=== PATIENT | female | born 1955 | race Caucasian/White ===

== ENCOUNTER 2017-10-26 06:19 | Inpatient (IN) | payer BC ==
[2017-10-05 15:22] VITALS: Ht 157.5 cm; Wt 78.6 kg
[2017-10-05 15:31] LABS: BASO % 0.3 %; BASO ABS # 0.02 K/uL (0-0.2); EOS ABS # 0.25 K/uL (0-0.5); HEMATOCRIT 38.7 % (37-47); HEMOGLOBIN 13.2 g/dL (12.0-16.0); IG# 0.01 K/uL (0.00-0.02); LYMPH % 25.2 %; LYMPH ABS # 1.56 K/uL (1.2-3.4); MEAN CELL VOLUME 86.2 fL (80-100); MEAN CORPUSCULAR HEMOGLOBIN 29.4 pg (25-34); MEAN CORPUSCULAR HGB CONC 34.1 g/dl (32-36); MEAN PLATELET VOLUME 9.3 fL (7.4-10.4); MONO % 7.8 %; MONO ABS # 0.48 K/uL (0.11-0.59); NEUT % 62.5 %; NEUT ABS # 3.87 K/uL (1.4-6.5); PLATELET COUNT 227 K/uL (130-400); RED CELL DISTRIBUTION WIDTH CV 12.4 % (11.5-14.5); RED CELL DISTRIBUTION WIDTH SD 39.5 fL (36.4-46.3); WHITE BLOOD COUNT 6.19 K/uL (4.8-10.8)
[2017-10-05 15:40] LABS: INR 0.9 (0.9-1.1); PTT PATIENT 24.8 SECONDS (21.0-31.0)
--- NOTE | 2017-10-05 16:12 | PAT Medication Instructions ---
Service Date Oct 05, 2017. Current Home Medication List Esomeprazole Magnesium (Nexium), 40 MG PO QAM Levothyroxine Sodium (Levothyroxine Sodium), 1 TAB PO 4XWEEK Levothyroxine Sodium (Levothyroxine Sodium), 1 TAB PO 3XWEEK Metformin Hcl (Glucophage), 500 MG PO BID Olmesartan Medoxomil (Benicar), 40 MG PO HS Medication Instructions For Your Scheduled Surgery - Hold the following medications the night before surgery: Olmesartan Medoxomil (Benicar), 40 MG PO HS - Hold the following medications the morning of surgery: Metformin Hcl (Glucophage), 500 MG PO BID - Take the following medications the morning of surgery with a sip of water: Esomeprazole Magnesium (Nexium), 40 MG PO QAM Levothyroxine Sodium (Levothyroxine Sodium), 1 TAB PO 4XWEEK Levothyroxine Sodium (Levothyroxine Sodium), 1 TAB PO 3XWEEK If you have any questions please call us at [phone] or [phone] or [phone]
[2017-10-05 16:41] LABS: CALCIUM 9.2 mg/dl (8.5-10.1); CREATININE 0.82 mg/dl (0.60-1.20); POTASSIUM 4.6 mmol/L (3.5-5.1)
--- NOTE | 2017-10-05 16:48 | DIAGNOSTIC IMAGING REPORT ---
CHEST 2 VIEWS ROUTINE CLINICAL HISTORY: Preoperative chest COMPARISON STUDY: No previous studies for comparison. FINDINGS: The cardiac and mediastinal contours are normal. There is no evidence of focal pulmonary consolidation. There is no evidence of failure. No pleural effusions are visualized.[ IMPRESSION: No active disease in the chest. Electronically signed by: Placido Farah M.D. 10/05/2017 4:47 PM Dictated Date/Time: 10/05/2017 4:46 PM
[2017-10-06 06:21] LABS: HEMOGLOBIN A1C 6.1 % (4.5-5.6)
--- NOTE | 2017-10-20 13:57 | HISTORY & PHYSICAL EXAMINATION ---
DATE OF ADMISSION: 10/26/2017 CHIEF COMPLAINT: Bilateral knee pain and discomfort, right side greater than left. HISTORY OF PRESENT ILLNESS: A 62-year-old white female referred by my partner Dr. Reynoso for surgical treatment of her right knee. She has got a very long history of bilateral knee pain and discomfort. 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 She has been through extensive conservative treatment. She had multiple injections in the knee which become less successful over time. They helped for a limited amount of time. She has been on different anti-inflammatories which do not help. Right knee has been worse than the left currently. Pain is mostly medial. She has taken anti-inflammatories in the past but they irritate her stomach and she has had to go to taking omeprazole as a result. She would like to have her right knee fixed first. PAST MEDICAL HISTORY: 1. Diabetes x3-4 years. 2. Hypertension. 3. Sleep apnea. 4. Hiatal hernia. 5. Gastroesophageal reflux disease. 6. Back pain/sciatica. PREVIOUS SURGICAL HISTORY: 1. Hysterectomy. 2. Tailbone surgery. 3. Foot surgery. 4. Eye surgery. 5. Cholecystectomy. ALLERGIES: None. CURRENT MEDICINES: 1. Benicar 40 mg daily. 2. Omeprazole 40 mg daily. 3. Levothyroxine 25 mcg on Wednesday, , Wednesday and Wednesday and 50 mcg on Wednesday, Wednesday and Wednesday. 4. Metformin 500 mg twice a day. 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 She is . Rare alcohol intake. Does not smoke. FAMILY HISTORY: Significant for heart disease, diabetes, colon cancer, breast cancer. REVIEW OF SYSTEMS: Sitting for diabetes. Denies any chest pain or shortness of breath. No history of DVT or PE. PHYSICAL EXAMINATION: GENERAL: Reveals a healthy pleasant, middle-aged female. Looks to be in pretty good health. HEENT: Benign. NECK: Supple. No lymphadenopathy. LUNGS: Clear to auscultation. HEART: Has a regular rate and rhythm. ABDOMEN: Soft, nontender, nondistended. EXTREMITIES: Grossly neurovascularly intact except as follows: The patient's both knees reveal patient walks independently. Fairly minimal limp. Examination of right knee reveals varus alignment to her knee. She is tender over the medial joint line. A small knee effusion. Range of motion is 0-125. No instability. IMAGING DATA: X-rays reveal advanced bilateral knee DJD. Disease primarily involves the medial compartment with some patellofemoral disease. The right side is a bit worse than the left. ASSESSMENT: A 62-year-old female with bilateral knee degenerative joint disease, right side more symptomatic than the left. She has failed conservative treatment and would like to have her right knee replaced. PLAN: We are going to take her to the operating room and do right total knee replacement. The risks and benefits of this procedure were explained to the patient including but not limited to DVT, PE, , infection, neurological injury, vascular injury, bleeding problem, pain, limited range of motion, stiffness, failure to relieve symptoms, incomplete relief of symptoms, need for further surgery in future, fracture, leg length inequality, nerve palsy, etc. The patient understands and desires to proceed. Informed consent was obtained. She does know to hold metformin 2 days preop. She will continue on her omeprazole. Probably seeing her back 2 weeks postop. She should be able to be discharged home, either do outpatient therapy or home health. YOLANDA
[~2017-10-26] VITALS: Ht 157.5 cm; Wt 78.6 kg
[2017-10-26] VITALS (9 sets, daily range): BP systolic 95–157; BP diastolic 59–77; PULSE 56–86; TEMP 36.4–36.7; O2SAT 94–100
[~2017-10-26 06:19] MED LIST: ACETAMINOPHEN 500 MG TAB PO SCH; BNC/40 PO; BUPIVACAINE LIPOSOME 266 MG, BUPIVACAINE/EPINEPHRINE INJ 50 ML, SODIUM CHLORIDE 0.9% PF... INFIL SCH; CEFAZOLIN 2000MG IV PUSH 15 ML IV SCH; FAMOTIDINE 20 MG TAB PO SCH; GABAPENTIN 600 MG PO SCH; GLC/500 PO; LACTATED RINGER'S 1000ML 1,000 ML IV SCH; LACTATED RINGER'S 1000ML 500 ML IV SCH; LACTATED RINGER'S 1000ML IV SCH; LEVO25TA5 PO; LEVO50TA6 PO; METOCLOPRAMIDE HCL 10 MG TAB PO SCH; NXM/40 PO; SCOPOLAMINE 1.5 MG TDSY TD SCH; TRANEXAMIC ACID INJ 1,000 MG x 1 Bag Intra-Op IV SCH
--- NOTE | 2017-10-26 06:49 | History & Physical Bridge Note ---
H&P Re-Evaluation Bridge Note: I have examined the patient, reviewed the History & Physical and in the interval since the performance of the History & Physical I have noted the following changes of clinical significance: No changes noted
[2017-10-26] MEDS ORDERED: BUPIVACAINE 0.5 % 5 MG/1 ML PF 10ML VIAL ONE (07:35)
[2017-10-26] MEDS ORDERED: ROPIVACAINE 0.5% 5 MG/ML 30 ML VIAL ONE (07:35)
[2017-10-26] MEDS ORDERED: MIDAZOLAM HCL 1 MG/ML 2ML VIAL ONE (07:47)
[2017-10-26] MEDS ORDERED: FENTANYL CITRATE INJ 50 MCG/1 ML 2 ML VIAL ONE (07:47)
[2017-10-26] MEDS ORDERED: BUPIVACAINE LIPOSOME 1/3% 266 MG/20 ML VIAL INFIL ONE (08:54)
[2017-10-26] MEDS ORDERED: BUPIVACAINE 0.25% 30 ML VIAL ONE (08:54)
[2017-10-26] MEDS ORDERED: BACITRACIN 50000 UNIT VIAL ONE (08:54)
[2017-10-26] MEDS ORDERED: SODIUM CHLORIDE 0.9% PF 50 ML VIAL ONE (08:54)
[2017-10-26] MEDS ORDERED: EpINEphrine INJ 1MG/ML AMP 1 MG/ML AMP ONE (08:54)
[2017-10-26] MEDS ORDERED: ONDANSETRON INJ 2 MG/ML 2 ML VIAL ONE ×2 (09:35→10:59)
[2017-10-26] MEDS ORDERED: PROPOFOL IV EMULSION 10 MG/ML 20 ML VIAL IV ONE (09:35)
[2017-10-26] MEDS ORDERED: LIDOCAINE HCL 2% 2 ML VIAL (20MG/ML) ONE (09:35)
[2017-10-26] MEDS ORDERED: HYDROmorphone INJ 2 MG/ML SYR/VIAL IV PRN (09:45)
[2017-10-26] MEDS ORDERED: ATROPINE SULFATE 0.1 MG/ML 5ML SYR IV PRN (09:45)
[2017-10-26] MEDS ORDERED: PHENYLEPHRINE 100MCG/ML 5ML SYR IV PRN (09:45)
[2017-10-26] MEDS ORDERED: EpHEDrine SULFATE INJ 50 MG/ML AMP IV PRN (09:45)
[2017-10-26] MEDS ORDERED: ONDANSETRON INJ 2 MG/ML 2 ML VIAL IV PRN ×2 (09:45→10:45)
[2017-10-26] MEDS ORDERED: EpHEDrine SULFATE 50MG/5ML SYR ONE (10:28)
[2017-10-26] MEDS ORDERED: BISACODYL 10 MG SUPP PR PRN (10:45)
[2017-10-26] MEDS ORDERED: METOCLOPRAMIDE HCL INJ 5 MG/ML 2 ML VIAL IV PRN (10:45)
[2017-10-26] MEDS ORDERED: GLUCAGON FOR INJ 1 MG VIAL SQ PRN (10:45)
[2017-10-26] MEDS ORDERED: MAGNESIUM HYDROXIDE SUSP 30 ML UDC PO PRN (10:45)
[2017-10-26] MEDS ORDERED: DiphenhydrAMINE HCL 50 MG/ML VIAL IV PRN (10:45)
[2017-10-26] MEDS ORDERED: GLUCOSE 10 TABS/TUBE PO PRN (10:45)
[2017-10-26] MEDS ORDERED: MoRPHine SULFATE 2 MG/ML CARP IV PRN (10:45)
[2017-10-26] MEDS ORDERED: DEXTROSE 50% 50 ML SYR IV PRN (10:45)
[2017-10-26] MEDS ORDERED: SILVER SULFADIAZINE 1% CR 50 GM JAR EXT PRN (10:45)
[2017-10-26] MEDS ORDERED: ZOLPIDEM TARTRATE 5 MG TAB PO PRN (10:45)
[2017-10-26] MEDS ORDERED: GLUCOSE 40% GEL 15 GM TUBE PO PRN (10:45)
[2017-10-26] MEDS ORDERED: ALUMINUM/MAGNESIUM/SIMETH (MAALOX MAX) 30 ML UDC PO PRN (10:45)
--- NOTE | 2017-10-26 10:45 | [facility] Post Operative Brief Note ---
Immediate Operative Summary Operative Date Oct 26, 2017. Pre-Operative Diagnosis Right Knee Advanced Degenerative Joint Disease Post-Operative Diagnosis Right Knee Advanced Degenerative Joint Disease Procedure(s) Performed Right Total Knee Arthroplasty Surgeon Dr. Painting Stone Decorator Surgeon(s) ROSALIE Ruby Estimated Blood Loss 50 ml Findings Consistent with Post-Op Diagnosis Fluids (cc crystalloids) 1100 cc Specimens A. Right Knee Bone and Tissue Drains None Anesthesia Type MAC Spinal Regional Complication(s) none Disposition Accompanied Pt To Recover: no Disposition: Recovery Room / PACU
--- NOTE | 2017-10-26 11:42 | DIAGNOSTIC IMAGING REPORT ---
RIGHT KNEE 2 VIEWS History: Right total knee arthroplasty. Degenerative arthritis. Postop. FINDINGS: The patient is status post a right total knee arthroplasty. The hardware is intact. No fracture or dislocation. Skin jesús are in place. IMPRESSION: Right total knee arthroplasty. No evidence for hardware complication. Electronically signed by: Michel Castillo M.D. 10/26/2017 11:41 AM Dictated Date/Time: 10/26/2017 11:39 AM
--- NOTE | 2017-10-26 11:44 | OPERATIVE REPORT ---
DATE OF OPERATION: 10/26/2017 SURGEON: Floyd Painting MD COPY OPERATOR: ROSALIE Ruby PREOPERATIVE DIAGNOSIS: Right knee degenerative joint disease. POSTOPERATIVE DIAGNOSIS: Same. PROCEDURE PERFORMED: Right cemented posterior stabilized total knee arthroplasty. COMPLICATIONS: None. ESTIMATED BLOOD LOSS: 50 mL. FLUID REPLACEMENT: 1100 mL crystalloid fluid replacement. ANESTHESIA: Spinal with adductor canal block. DRAINS: None. SPECIMENS: Right knee sent for pathology. OPERATIVE INDICATIONS: The patient is a 62-year-old female who has had a fairly long history of bilateral knee pain and discomfort followed and managed by my partner Dr. Reynoso. She became less responsive to conservative care. X-rays showed moderate to advanced medial compartment DJD. She elected to do a total knee arthroplasty. OPERATIVE FINDINGS: Operative findings were advanced right knee DJD. She had a pretty extensive grade 4 changes of the medial femoral condyle, was in eburnation. She had grade 4 changes of the anterior medial tibial plateau. She also had some focal grade 4 changes of patellofemoral joint. The lateral compartment was pretty well preserved. Moderate size joint effusion. OPERATIVE IMPLANTS: Operative implants consisted of: 1. A Biomet Vanguard size 57.5 right posterior stabilized femoral component. 2. A Biomet size 63 tibial tray. 3. A 10 mm posterior stabilized polyethylene insert. 4. A 31 x 8 all poly patella. OPERATIVE PROCEDURE: The patient taken to the operating room, identified and placed on the operating table in supine position. All contact areas were appropriately padded. IV antibiotics were provided by anesthesia team. A spinal anesthetic and adductor canal block had been provided in the holding area. Watson catheter was placed in sterile fashion. Right thigh tourniquet was then placed and the right lower extremity was then prepped and draped in usual sterile fashion. The right leg was elevated, exsanguinated with Esmarch, tourniquet was placed at 300 mmHg. An anterior approach of the right knee was then performed through a longitudinal incision centered over the patella. Sharp dissection was carried through the subcutaneous tissue down below the extensor mechanism. A medial parapatellar arthrotomy incision was made. Some subperiosteal dissection was carried out medially. The fat pad resected from beneath the patellar tendon. The lateral patellofemoral ligament was released. Patella was everted and the knee was flexed. The osteophytes were taken off the distal femur. The ACL and PCL were then released from the distal femur and the tibia subluxated anteriorly. The external tibial alignment jig was then placed in the anterior face of the tibia and adjusted 14 mm medially. Proximal tibial cut was made to remove about 3-4 mm of bone from the medial side as she did not have a lot of bone wear. The tibia was then sized to a size 63. Attention was then drawn to the femur. The distal femur was entered with a sharp drill bit. Intramedullary canal was suctioned. A 5 degree valgus cutting guide was placed. A distal femoral cut was made to take an additional 3 mm of bone off the distal femur. Femur was then sized to a 57.5. The AP cutting block was pinned parallel to the epicondylar axis, which was 3 degrees of external rotation. The anterior cut, anterior chamfer cut, posterior cut, posterior chamfer cuts were made. Box cutting guide was placed and adjusted slightly lateral and box cut was made. The knee was flexed. The remnants of the medial and lateral menisci were excised. The osteophytes were taken off the posterior aspect of the femur. Trial femoral component was placed. Tibial tray was pinned in maximum external rotation and the drill and stem punch were used to create defect in proximal tibia for the tibial tray. The knee was then trialed and a 10 mm insert fit most appropriately. Attention was then drawn to the patella. The patella was cleaned of all soft tissues. Patella thickness measured 18 mm and was cut down to 13. It was sized to a size 31 patella. Lug holes were drilled for 31 patella. Lateral osteophyte was removed. Patella button was placed. Knee was taken through range of motion and the patella tracked nicely with no thumbs test. Attention was then drawn toward placement of permanent components. All trial components removed. A bone plug was placed in the distal femur to limit blood loss. A single batch of Palacos G cement was mixed. A right size 57.5 right posterior stabilized femoral component, size 63 tibial tray, 10 mm posterior stabilized polyethylene insert, and a 31 x 8 all poly patella then cemented in place. Knee was brought out into full extension until cement hardened. A final cement check was then performed. Pericapsular tissues were then injected with a total of 100 mL of a combination of 20 mL of Exparel, 30 mL of normal saline, 50 mL of 0.25% Marcaine with epinephrine. The patient did receive 1 gram of tranexamic acid. The tourniquet was then let down for final tourniquet time of 49 minutes. Hemostasis was assured using electrocautery. The extensor mechanism was then closed with a combination of #1 PDS suture and #1 Vicryl suture in [id number] fashion. Extensor mechanism was checked and found to be intact. Subcutaneous tissue was then closed with #2 Dexon suture in a buried interrupted fashion. Skin was closed skin jesús. Leg was then cleaned and dried and a sterile dressing of Xeroform, 4 x 4's, sterile cast padding and Keith bandage were applied. The patient then transferred to the recovery room in stable condition. The patient tolerated the procedure well with no complication. All needle and sponge counts were correct at the end of the operation. I attest to the content of the Intraoperative Record and any orders documented therein. Any exception s are noted below.
[2017-10-26] MEDS: KETOROLAC TROMETHAMINE 30 MG/ML VIAL IV. SCH ×2 (13:53→21:28)
[2017-10-26] MEDS: FERROUS GLUCONATE 324 MG TAB PO SCH ×2 (13:55→18:10)
--- NOTE | 2017-10-26 14:23 | Anesthesiology Progress Note ---
Anesthesia Post Op Note Date & Time Oct 26, 2017 at 14:23 Vital Signs Pain Intensity: 0.0 Vital Signs Past 12 Hours Date Time Temp Pulse Resp B/P (MAP) Pulse Ox O2 Delivery O2 Flow Rate FiO2 10/26/17 14:00 36.5 69 16 122/73 (89) 100 Nasal Cannula 2.0 10/26/17 13:05 36.4 70 16 110/65 (80) 99 Nasal Cannula 2.0 10/26/17 12:34 36.4 64 18 108/67 (81) 98 Nasal Cannula 2.0 10/26/17 12:10 Nasal Cannula 10/26/17 12:10 100 Nasal Cannula 2.0 10/26/17 12:05 36.4 74 16 108/67 (81) 100 Nasal Cannula 2.0 10/26/17 11:45 36.4 63 16 113/56 97 Nasal Cannula 2 10/26/17 11:35 36.4 66 16 124/60 99 Nasal Cannula 2 10/26/17 11:25 65 16 120/58 100 Nasal Cannula 2 10/26/17 11:15 65 18 122/59 100 Nasal Cannula 2 10/26/17 11:05 60 16 131/54 100 Oxymask 10 10/26/17 10:55 61 16 131/54 100 Oxymask 10 10/26/17 10:49 36.7 85 16 122/65 96 Oxymask 10 10/26/17 07:04 36.7 86 18 157/77 94 Room Air Notes Mental Status: alert / awake / arousable, participated in evaluation Pt Amnestic to Procedure: Yes Nausea / Vomiting: adequately controlled Pain: adequately controlled Airway Patency, RR, SpO2: stable & adequate BP & HR: stable & adequate Hydration State: stable & adequate Anesthetic Complications: no major complications apparent
[2017-10-26] MEDS: ACETAMINOPHEN 500 MG TAB PO SCH ×2 (14:49→21:27)
--- NOTE | 2017-10-26 15:42 | PROGRESS NOTE ---
DATE: 10/26/2017 SUBJECTIVE: A 62-year-old white female postop from a right knee replacement. She is doing pretty well. Not having any pain. Cannot feel her legs yet. The spinal still in effect. No chest pain or shortness of breath. Not feeling dizzy or lightheaded. OBJECTIVE: VITAL SIGNS: Temperature 36.5. Vital signs stable. PHYSICAL EXAMINATION: GENERAL: Reveals a healthy pleasant, middle-aged female. Lying in bed, looks pretty comfortable. She is talking to her family. LUNGS: Clear to auscultation. HEART: Regular rate and rhythm. ABDOMEN: Soft, nontender, nondistended. EXTREMITIES: Grossly neurovascularly intact except as follows: Examination of the right leg reveals the leg to be well aligned. Dressing is clean, dry and intact. She got no significant sensory or motor function yet. ASSESSMENT: A 62-year-old female postop from a right knee replacement, doing well. Pain is controlled. Spinal still in effect. PLAN: 1. DVT prophylaxis including thigh-high TEDs, SCDs, and aspirin twice a day. 2. PT/OT. Weight bear as tolerated. Right total knee protocol. 3. Pain control. Doing well with current pain regimen. We will have to adjust medicines as her spinal wears off. 4. IV antibiotics x24 hours. 5. Disposition: Plan to discharge to home likely with some home health once adequately recovered.
[2017-10-26] MEDS: CHECK SCOPOLAMINE PATCH PLACEMENT SCH ×2 (16:00→23:57)
[2017-10-26] MEDS: OXYCODONE HCL IR 5 MG TAB (IMMEDIATE RELEASE) PO PRN ×2 (16:45→22:32)
[2017-10-26] MEDS ORDERED: TRANEXAMIC ACID INJ 1,000 MG in SODIUM CHLORIDE 0.9% 100ML 100 ML IV SCH (17:00)
[2017-10-26] MEDS: CEFAZOLIN IV 1,000 MG in SYRINGE 0 ML IV SCH (18:07)
[2017-10-26] MEDS: SODIUM CHLORIDE 0.9% 1000ML 1,000 ML IV SCH (18:08)
[2017-10-26] MEDS: INSULIN HUMAN REGULAR SC SCH ×2 (18:08→21:00)
[2017-10-26] MEDS: SENNA 8.6 MG TAB PO SCH (21:26)
[2017-10-26] MEDS: OLMESARTAN MEDOXOMIL 40 MG TAB PO SCH (21:26)
[2017-10-26] MEDS: ASPIRIN 81 MG ECTAB PO SCH (21:27)
[2017-10-26] MEDS: TAPENTADOL ER 50 MG TABCR PO SCH (21:30)
[2017-10-26] MEDS: DOCUSATE SODIUM 100 MG CAP PO SCH (21:31)
[2017-10-26] MEDS ORDERED: NURSING VERBAL MED ORDER ONE (22:45)
[2017-10-27] MEDS: KETOROLAC TROMETHAMINE 30 MG/ML VIAL IV. SCH ×4 (02:19→20:30)
[2017-10-27] MEDS: CEFAZOLIN IV 1,000 MG in SYRINGE 0 ML IV SCH (02:19)
[2017-10-27 03:43] VITALS: BP 105/63; PULSE 54; TEMP 36.6; O2SAT 95
[2017-10-27] MEDS: SODIUM CHLORIDE 0.9% 1000ML 1,000 ML IV SCH (04:44)
[2017-10-27] MEDS: LEVOTHYROXINE 25 MCG TAB PO SCH (05:56)
[2017-10-27] MEDS: ACETAMINOPHEN 500 MG TAB PO SCH ×3 (05:56→21:02)
[2017-10-27 07:08] LABS: HEMATOCRIT 31.9 % (37-47); HEMOGLOBIN 10.6 g/dL (12.0-16.0); MEAN CELL VOLUME 88.4 fL (80-100); MEAN CORPUSCULAR HEMOGLOBIN 29.4 pg (25-34); MEAN CORPUSCULAR HGB CONC 33.2 g/dl (32-36); MEAN PLATELET VOLUME 9.2 fL (7.4-10.4); PLATELET COUNT 170 K/uL (130-400); RED CELL DISTRIBUTION WIDTH CV 12.7 % (11.5-14.5); RED CELL DISTRIBUTION WIDTH SD 41.2 fL (36.4-46.3); WHITE BLOOD COUNT 4.47 K/uL (4.8-10.8)
[2017-10-27] MEDS: OXYCODONE HCL IR 5 MG TAB (IMMEDIATE RELEASE) PO PRN ×3 (07:15→23:27)
[2017-10-27 07:36] LABS: CALCIUM 8.4 mg/dl (8.5-10.1); CREATININE 0.95 mg/dl (0.60-1.20); POTASSIUM 3.9 mmol/L (3.5-5.1)
[2017-10-27] MEDS: CHECK SCOPOLAMINE PATCH PLACEMENT SCH ×3 (08:00→23:27)
[2017-10-27 08:08] VITALS: BP 97/63; PULSE 67; TEMP 36.4; O2SAT 92
[2017-10-27] MEDS ORDERED: PANTOprazole SOD 40 MG TAB PO SCH (09:00)
[2017-10-27] MEDS: INSULIN HUMAN REGULAR SC SCH ×4 (09:11→20:48)
[2017-10-27] MEDS: ASPIRIN 81 MG ECTAB PO SCH ×2 (09:15→20:30)
[2017-10-27] MEDS: DOCUSATE SODIUM 100 MG CAP PO SCH ×2 (09:15→20:30)
[2017-10-27] MEDS: FERROUS GLUCONATE 324 MG TAB PO SCH ×3 (09:15→17:50)
[2017-10-27] MEDS: PANTOprazole SOD 40 MG TAB PO SCH (09:15)
[2017-10-27] MEDS: MULTIVITAMIN TAB PO SCH (09:15)
[2017-10-27 09:20] VITALS: BP 131/71; PULSE 71
[2017-10-27] MEDS: TAPENTADOL ER 50 MG TABCR PO SCH ×2 (09:24→20:32)
--- NOTE | 2017-10-27 10:57 | Anesthesiology Progress Note ---
Anesthesia Post Op Note Date & Time Oct 27, 2017 at 10:56 Vital Signs Vital Signs Past 12 Hours Date Time Temp Pulse Resp B/P (MAP) Pulse Ox O2 Delivery O2 Flow Rate FiO2 10/27/17 09:20 71 131/71 (91) 10/27/17 08:08 36.4 67 20 97/63 (74) 92 Room Air 10/27/17 07:40 Room Air 10/27/17 03:43 36.6 54 15 105/63 (77) 95 Room Air 10/26/17 23:40 60 113/68 (83) 10/26/17 23:40 98 Room Air 2.0 10/26/17 22:58 36.5 57 15 95/59 (71) 98 Room Air Notes Mental Status: alert / awake / arousable, participated in evaluation Pt Amnestic to Procedure: Yes Nausea / Vomiting: adequately controlled Pain: adequately controlled Airway Patency, RR, SpO2: stable & adequate BP & HR: stable & adequate Hydration State: stable & adequate Neuraxial Anesthesia: sensory block resolved Anesthetic Complications: no major complications apparent
[2017-10-27 11:15] VITALS: BP_SYST 119; BP_SYST 99; BP_DIAS 63; BP_DIAS 73; PULSE 56; TEMP 36.6; O2SAT 94
[2017-10-27] MEDS ORDERED: FRRG PO (11:26)
[2017-10-27] MEDS ORDERED: ACET-24 PO (11:26)
[2017-10-27] MEDS ORDERED: ASPI-320 PO (11:26)
[2017-10-27] MEDS ORDERED: RXC5 PO (11:26)
[2017-10-27 15:02] VITALS: BP 120/69; PULSE 72; TEMP 36.9; O2SAT 96
--- NOTE | 2017-10-27 19:48 | PROGRESS NOTE ---
DATE: 10/27/2017 SUBJECTIVE: A 62-year-old white female postop day 1 from a right knee replacement. She is doing pretty well. Pretty significant pain but managed with medicines. She is really concerned about going home. She does not have much help at home as her works quite a bit. No chest pain or shortness of breath. She has gotten a little bit dizzy with her pain medicine. OBJECTIVE: VITAL SIGNS: Temperature 36.6. Vital signs stable. GENERAL: Physical examination reveals a pleasant, middle-aged female. She is sitting up in bed and eating dinner. She looks comfortable. EXTREMITIES: Examination of the right leg reveals the dressing to be clean, dry and intact. She can dorsiflex and plantarflex her foot appropriately. NEUROLOGIC: She is neurologically intact. LABORATORY DATA: Hemoglobin 10.6, hematocrit 31.9. Electrolytes are stable. ASSESSMENT: Ppeyl-dlv-[id number]-old female postop day 1 from right knee replacement, doing pretty well. Significant pain but not unexpected. PLAN: 1. DVT prophylaxis including thigh-high TEDs, SCDs, and aspirin twice a day. 2. PT, OT. Weight bear as tolerated. Right total knee protocol. 3. Pain control. Doing reasonably well with current pain regimen. 4. Disposition: She is hoping to be discharged to a [facility] facility if insurance will cover it. If not, she will likely have to go home with some home health. YOLANDA
--- NOTE | 2017-10-27 19:56 | Discharge Instructions ---
Discharge Instructions Date of Service Oct 27, 2017. Admission Reason for Admission: Right Knee Degenerative Joint Disease Discharge Discharge Diagnosis / Problem: Right Knee Replacement Discharge Goals Goal(s): Decrease discomfort, Improve function, Increase independence, Improve disease control, Therapeutic intervention Activity Recommendations Activity Limitations: per Instructions/Follow-up section Weightbearing Status: Right weightbearing . Instructions / Follow-Up Instructions / Follow-Up ACTIVITY RECOMMENDATIONS: Physical Therapy: * You will go to physical therapy three times each week for four to six weeks after your surgery in order to regain your knee range of motion and to retrain your knee to work properly. * It is just as important to make sure you are getting your knee perfectly straight as it is to regain your knee bend. * Taking a pain pill an hour before therapy can help you have a more productive and comfortable therapy session. Home Exercise: * You were shown a series of exercises (heel props, heel slides, etc.) in the hospital. Do these exercises three to four times each day including the exercises you were shown in physical therapy. Walking: * Get up and walk several times each day. For the first four weeks, try not to stand or walk for more than one hour at a time. If you do stand or walk for more than one hour, you will not hurt anything, but your knee and leg will likely swell. * As you feel comfortable, you may change from the walker or crutches to a cane and then to independent walking. MEDICATIONS: New Medicine: * You will likely be taking one or more of these medications: 1. Oxycodone - A quick and shorter-acting pain medication. Take one to two tablets every four to six hours to lessen your pain. 2. Iron Sulfate - Take two times each day for the month after surgery to help you replace the blood lost during surgery. 3. Aspirin - Thins your blood to lessen the chance of forming a blood clot. * The most common side effects of pain medicine and iron are nausea and constipation. If nausea or constipation is too much of a problem or if you have any questions about your new medicines or doses, call [facility] at [phone]. We will try to help you manage these issues. VERY IMPORTANT TO READ AND REVIEW" Pain: * The immediate post-operative period after knee replacement surgery is often quite painful. * You are given a prescription for pain medicine. You should take it, as directed, when you need it, especially before physical therapy and before going to bed. Pain that interferes with sleep is very common and can last several months. * You will likely need pain medicine for the first four to six weeks. It will not stop all of the pain. The pain will lessen and as you feel better, you may change to milder pain medicine such as Tylenol. * The most common side effects of pain medicine are nausea and constipation, so don't take more than you need. SPECIAL CARE INSTRUCTIONS: TEDs/Elastic Stockings: * The white elastic stockings help limit swelling and prevent blood clots from forming in your legs. The more you wear them, the more they work. * Wear them for six weeks after knee replacement surgery and four weeks after partial knee replacement. Prevention of Infection: * Take antibiotics one hour before any dental cleaning, dental work, urological procedure, gastrointestinal procedure or any invasive surgery in order to prevent your new joint from getting infected. * You may get the antibiotics from the doctor performing the procedure or you may call our office at before and we will call in a prescription to the pharmacy of your choice. Things to Watch For: * Drainage from the incision site that occurs more than one week after your surgery. * Severely increased knee/leg pain or swelling. * Increased redness at the incision site. * Fever above 102 degrees Fahrenheit. * Unusual chest pain or shortness of breath. * Unusual pain or burning with urination. Call [facility] at with any of the above problems or if you have any questions about your medicines or recovery. FOLLOW UP VISIT: Make an appointment to see your doctor for approximately two weeks after surgery for a progress check and staple removal by calling the office at . Current Hospital Diet Patient's current hospital diet: Diabetes Type 2 Diet Discharge Diet Recommended Diet: Diabetes Type 2 Diet Procedures Procedures Performed: Right Total Knee Arthroplasty Pending Studies Studies pending at discharge: no Laboratory Results Hemoglobin A1c Test 10/05/17 15:11 Range/Units Estimated Average Glucose 128 mg/dl Hemoglobin A1c 6.1 H 4.5-5.6 % Medical Emergencies . Who to Call and When: Medical Emergencies: If at any time you feel your situation is an emergency, please call [phone] immediately. . Non-Emergent Contact Non-Emergency issues call your: Surgeon . "Provider Documentation" section prepared by Floyd Painting. .
--- NOTE | 2017-10-27 20:01 | Discharge Instructions ---
Discharge Instructions Date of Service Oct 27, 2017. Admission Reason for Admission: Right Knee Degenerative Joint Disease Discharge Discharge Diagnosis / Problem: Right Knee Replacement Discharge Goals Goal(s): Decrease discomfort, Improve function, Increase independence, Improve disease control, Therapeutic intervention Activity Recommendations Activity Level: Assistance Required Therapies: Physical Therapy, Occupational Therapy Weightbearing Status: Right weightbearing . Additional Information Patient informed of condition: Yes Advance Directives: No DNR: No Level of Care: Skilled Communicable Disease: No Prognosis: Improving Instructions / Follow-Up Instructions / Follow-Up ACTIVITY RECOMMENDATIONS: Physical Therapy: * You will go to physical therapy three times each week for four to six weeks after your surgery in order to regain your knee range of motion and to retrain your knee to work properly. * It is just as important to make sure you are getting your knee perfectly straight as it is to regain your knee bend. * Taking a pain pill an hour before therapy can help you have a more productive and comfortable therapy session. Home Exercise: * You were shown a series of exercises (heel props, heel slides, etc.) in the hospital. Do these exercises three to four times each day including the exercises you were shown in physical therapy. Walking: * Get up and walk several times each day. For the first four weeks, try not to stand or walk for more than one hour at a time. If you do stand or walk for more than one hour, you will not hurt anything, but your knee and leg will likely swell. * As you feel comfortable, you may change from the walker or crutches to a cane and then to independent walking. MEDICATIONS: New Medicine: * You will likely be taking one or more of these medications: 1. Oxycodone - A quick and shorter-acting pain medication. Take one to two tablets every four to six hours to lessen your pain. 2. Iron Sulfate - Take two times each day for the month after surgery to help you replace the blood lost during surgery. 3. Aspirin - Thins your blood to lessen the chance of forming a blood clot. * The most common side effects of pain medicine and iron are nausea and constipation. If nausea or constipation is too much of a problem or if you have any questions about your new medicines or doses, call [facility] at . We will try to help you manage these issues. VERY IMPORTANT TO READ AND REVIEW" Pain: * The immediate post-operative period after knee replacement surgery is often quite painful. * You are given a prescription for pain medicine. You should take it, as directed, when you need it, especially before physical therapy and before going to bed. Pain that interferes with sleep is very common and can last several months. * You will likely need pain medicine for the first four to six weeks. It will not stop all of the pain. The pain will lessen and as you feel better, you may change to milder pain medicine such as Tylenol. * The most common side effects of pain medicine are nausea and constipation, so don't take more than you need. SPECIAL CARE INSTRUCTIONS: TEDs/Elastic Stockings: * The white elastic stockings help limit swelling and prevent blood clots from forming in your legs. The more you wear them, the more they work. * Wear them for six weeks after knee replacement surgery and four weeks after partial knee replacement. Prevention of Infection: * Take antibiotics one hour before any dental cleaning, dental work, urological procedure, gastrointestinal procedure or any invasive surgery in order to prevent your new joint from getting infected. * You may get the antibiotics from the doctor performing the procedure or you may call our office at before and we will call in a prescription to the pharmacy of your choice. Things to Watch For: * Drainage from the incision site that occurs more than one week after your surgery. * Severely increased knee/leg pain or swelling. * Increased redness at the incision site. * Fever above 102 degrees Fahrenheit. * Unusual chest pain or shortness of breath. * Unusual pain or burning with urination. Call [facility] at with any of the above problems or if you have any questions about your medicines or recovery. FOLLOW UP VISIT: Make an appointment to see your doctor for approximately two weeks after surgery for a progress check and staple removal by calling the office at . Current Hospital Diet Patient's current hospital diet: Diabetes Type 2 Diet Discharge Diet Recommended Diet: Diabetes Type 2 Diet Procedures Procedures Performed: Right Total Knee Arthroplasty Pending Studies Studies pending at discharge: no Laboratory Results Hemoglobin A1c Test 10/05/17 15:11 Range/Units Estimated Average Glucose 128 mg/dl Hemoglobin A1c 6.1 H 4.5-5.6 % Medical Emergencies . Who to Call and When: Medical Emergencies: If at any time you feel your situation is an emergency, please call 911 immediately. . Non-Emergent Contact Non-Emergency issues call your: Surgeon . . "Provider Documentation" section prepared by [employer]. . Core Measure Problem Core Measures: None
[2017-10-27] MEDS: OLMESARTAN MEDOXOMIL 40 MG TAB PO SCH (20:30)
[2017-10-27] MEDS: SENNA 8.6 MG TAB PO SCH (20:30)
[2017-10-27 23:10] VITALS: BP 131/81; PULSE 70; TEMP 36.4; O2SAT 93
[2017-10-28] MEDS: KETOROLAC TROMETHAMINE 30 MG/ML VIAL IV. SCH ×2 (02:25→07:46)
[2017-10-28] MEDS: ACETAMINOPHEN 500 MG TAB PO SCH ×2 (05:56→13:33)
[2017-10-28] MEDS: LEVOTHYROXINE 25 MCG TAB PO SCH (05:56)
[2017-10-28 07:14] VITALS: BP 125/79; PULSE 61; TEMP 36.5; O2SAT 95
[2017-10-28] MEDS: CHECK SCOPOLAMINE PATCH PLACEMENT SCH ×2 (07:47→15:46)
[2017-10-28] MEDS: INSULIN HUMAN REGULAR SC SCH ×3 (08:00→17:15)
--- NOTE | 2017-10-28 08:17 | PROGRESS NOTE ---
DATE: 10/28/2017 SUBJECTIVE: This is a 62-year-old white female, postop day 2 from a right knee replacement. Pain seems to be a little bit better this morning. No chest pain or shortness of breath. Not feeling dizzy or lightheaded. OBJECTIVE: VITAL SIGNS: Temperature is 36.5. Vital signs stable. PHYSICAL EXAMINATION: GENERAL: Physical exam shows a pleasant, middle-aged female. She is sitting up in bed, looks reasonably comfortable. EXTREMITIES: Examination of the right leg reveals the dressing to be clean, dry, and intact. Some mild swelling. Calf is soft and supple. NEUROLOGICAL: She is neurologically intact. ASSESSMENT: This is a 62-year-old white female, postop day 2 from right knee replacement, doing reasonably well. Pain seems to be controlled. PLAN: 1. DVT prophylaxis including thigh-high TEDs, SCDs, and aspirin twice a day. 2. PT/OT. Weightbear as tolerated. Right total knee protocol. 3. Pain control. Doing reasonably well with current pain regimen. 4. Disposition. She is wanting to be discharged to a [place] [facility]. We are waiting for insurance approval versus denial. If denied, she will have to go to home with some home health.
[2017-10-28] MEDS: MULTIVITAMIN TAB PO SCH (08:39)
[2017-10-28] MEDS: PANTOprazole SOD 40 MG TAB PO SCH (08:39)
[2017-10-28] MEDS: DOCUSATE SODIUM 100 MG CAP PO SCH (08:39)
[2017-10-28] MEDS: FERROUS GLUCONATE 324 MG TAB PO SCH ×3 (08:39→17:54)
[2017-10-28] MEDS: ASPIRIN 81 MG ECTAB PO SCH (08:39)
[2017-10-28] MEDS: TAPENTADOL ER 50 MG TABCR PO SCH (08:41)
[2017-10-28] MEDS: OXYCODONE HCL IR 5 MG TAB (IMMEDIATE RELEASE) PO PRN (13:36)
[2017-10-28 15:32] VITALS: BP 109/70; PULSE 57; TEMP 36.7; O2SAT 95
[2017-10-28 17:10] VITALS: BP 109/70; PULSE 57; TEMP 36.7; O2SAT 95
== END 2017-10-28 18:36 | DRG 470 ==
LOC: C.ACU 06:19 → C.3E 08:30 → ENRESERV 11:25
PROVIDERS: ADMIT Orthopaedic Surgery Sports Medicine; ATTEND Orthopaedic Surgery Sports Medicine
PROC: 0SRC0J9 Replacement of Right Knee Joint with Synthetic Substitute, Cemented, Open Approach (ICD-10-PCS; principal; 2017-10-26 09:00)
DX: M17.0 Bilateral primary osteoarthritis of knee (principal); E11.9 Type 2 diabetes mellitus without complications; I10 Essential (primary) hypertension; G47.30 Sleep apnea, unspecified; K21.9 Gastro-esophageal reflux disease without esophagitis; Z79.84 Long term (current) use of oral hypoglycemic drugs; Z79.899 Other long term (current) drug therapy; Z83.3 Family history of diabetes mellitus